=== PATIENT | female | born 1945 | race Caucasian/White ===

== ENCOUNTER → 2021-10-29 16:28 | Outpatient (BNVA) | payer OTHER, SELFPAY | PROVIDERS: Visit Provider Psychiatry & Neurology Neurology | DX: F03.90 Unspecified dementia, unspecified severity, without behavioral disturbance, psychotic disturbance, mood disturbance, and anxiety (principal); R26.89 Other abnormalities of gait and mobility; Z79.899 Other long term (current) drug therapy; Z91.81 History of falling | CPT/HCPCS: 99212 ==

== ENCOUNTER → 2022-09-17 15:37 | Outpatient (BNVA) | payer OTHER, SELFPAY | PROVIDERS: PCP Internal Medicine; Visit Provider Psychiatry & Neurology Neurology | DX: Z13.89 Encounter for screening for other disorder (principal) ==

== ENCOUNTER 2023-03-17 15:36 | Outpatient (AMB) | payer OTHER, SELFPAY ==
[2023-03-17 15:37] VITALS: BP 104/62; PULSE 82
--- NOTE | 2023-03-17 15:37 | A.OFFVIS_ITS ---
Intake Vital Signs 03/17/23 15:37 Height 5 ft BP 104/62 Blood Pressure Location Rt brachial Position Sitting Pulse 82 Pulse Source Pulse Oximeter Intake Visit Reasons: 6mnts f/u appt-lvm Intake Note: Patient presents for 6 month follow up. Allergies Penicillins Adverse Reaction (Mild, Verified 03/17/23 15:39) Unknown HPI HPI Comments History of Present Illness Details 77-year-old female comes for follow-up of her dementia and multifactorial gait disorder.she had a fall and had a right hip fracture about 4 mths ago . she had surgery and was in rehab and is doing better now. Cognitively she has been stable . No behavior issues.No falls since then she walks with walker .she lives with her and her daughter helps out. She stays in bed most of the time she reports she has generalized pain related to her arthritis and she feels tired. Her appetite is better She denies any hallucinations. She is sleeping ok. [facility] Medical History Arthritis Delirium Depression GERD (gastroesophageal reflux disease) HTN (hypertension) Hyperlipidemia Hypothyroidism Surgical History History of hip surgery Family History Mother Diabetes Father Aneurysm Social History Alcohol intake: never Patient Tobacco Use Status: Never used Tobacco Physical Exam Vital Signs: Last Vital Signs Pulse 82 03/17/23 15:37 BP 104/62 03/17/23 15:37 Const General: cooperative and awake Nutritional Appearance: underweight Orientation/consciousness: oriented to person, oriented to place and oriented to time Neuro Other: gait- scoliosis, unstable, needed assistance General: oriented to person, oriented to place, oriented to time, tone normal, moves all extremities and no focal motor deficits Assessment & Plan Assessment & Plan (1) Dementia: Code(s): F03.90 - Unspecified dementia, unspecified severity, without behavioral disturbance, psychotic disturbance, mood disturbance, and anxiety (2) Gait disorder: Code(s): R26.9 - Unspecified abnormalities of gait and mobility (3) Falls: Code(s): W19.XXXA - Unspecified fall, initial encounter Plan continue Namenda 10 mg b.i.d. Hold clonazepam 0.5 mg 1/2 tab qhs I also suggested to try Tylenol p.m. to help with generalized pain and sleep. Coding Level of Care Code Est Pt Level 4 (48110) Diagnoses Dementia F03.90 Gait disorder R26.9 Falls W19.XXXA
== END 2023-03-17 15:56 | disposition home or self-care (01) ==
PROVIDERS: Visit Provider Psychiatry & Neurology Neurology
DX: F03.90 Unspecified dementia, unspecified severity, without behavioral disturbance, psychotic disturbance, mood disturbance, and anxiety (principal); R26.9 Unspecified abnormalities of gait and mobility; R29.6 Repeated falls
CPT/HCPCS: 99214

== ENCOUNTER → 2023-03-17 15:36 | Outpatient (BNVA) | payer OTHER, SELFPAY | PROVIDERS: Visit Provider Psychiatry & Neurology Neurology | DX: F03.90 Unspecified dementia, unspecified severity, without behavioral disturbance, psychotic disturbance, mood disturbance, and anxiety (principal); R26.9 Unspecified abnormalities of gait and mobility; W19.XXXA Unspecified fall, initial encounter ==

== ENCOUNTER 2024-10-04 15:31 | Outpatient (AMB) | payer OTHER, SELFPAY ==
--- NOTE | 2024-10-04 15:33 | MHC.OFFVIS ---
Vital Signs 10/04/24 15:42 Height 5 ft Weight 85 lb BMI 16.6 BP 112/78 Blood Pressure Location Rt brachial Position Sitting Pulse 92 Pulse Source Pulse Oximeter Pulse Oximetry (%) 97 Oxygen Delivery Method Room Air Intake Visit Reasons: 1yr f/u appt Intake Note: Patient following up for dementia Allergies Penicillins Adverse Reaction (Mild, Verified 10/04/24 15:35) Unknown HPI Comments Details: 79-year-old female comes for follow-up of her dementia and multifactorial gait disorder after 18 months. she is on supplemental oxygen for pulmonary fibrosis and has been doing well. Her cognition is better. she lives with her and her children - do 20 hrs of home care per day.she ambulates at home with a walker . No recent falls she sleeps most nights . she also takes daytime naps. .History from last visit-she had a fall and had a right hip fracture November 2022 . she had surgery and was in rehab and is doing better now. Cognitively she has been stable . No behavior issues.No falls since then she walks with walker .she lives with her and her daughter helps out. She stays in bed most of the time she reports she has generalized pain related to her arthritis and she feels tired. Her appetite is better She denies any hallucinations. She is sleeping ok. COUNT INCLUDES THE [facility] Medical History (Updated 10/04/24 @ 16:04 by Alisson Gordon MD) Cognitive disorder Forearm fracture Delirium Hypothyroidism GERD (gastroesophageal reflux disease) Depression Hyperlipidemia HTN (hypertension) Arthritis Surgical History History of hip surgery Family History Mother Diabetes Father Aneurysm Social History Alcohol intake: never Patient Tobacco Use Status: Never used Tobacco Physical Exam Const General: cooperative and awake Nutritional Appearance: underweight Orientation/consciousness: oriented to person, oriented to place and oriented to time Neuro Other: In wheel chair . General: oriented to person, oriented to place, oriented to time, tone normal, moves all extremities and no focal motor deficits Orientation What is the (year) (season) (date) (day) (month)?: year, season, date, day and month Where are we (state) (county) (town or city) (hospital) (floor)?: state, town or city, hospital/clinic and floor Registration Name of 3 unrelated objects clearly and slowly, then ask patient to repeat all 3 of them. (1st repeat determines score. Make sure they can repeat all three): object 1, object 2 and object 3 Attention & Calculation (CHOOSE ONE) Spell WORLD backwards (DLROW): 5 letters Recall Ask patient to repeat the 3 items from question #3.: object 1 and object 2 Language Show patient a wristwatch & ask what it is. Repeat for pencil.: watch and pencil Ask the patient to repeat the phrase 'No ifs, ands, or buts' after you.: correct Ask the patient to 'take a piece of paper with their right hand' 'fold paper in half' 'place paper on floor': take paper in right hand, fold paper in half and place paper on floor Print the sentence 'CLOSE YOUR EYES' on a piece. If patient actually closes eyes then score.: followed written direction Ask patient to copy figure of intersecting pentagons exactly. Score if all 10 angles & 2 intersects are included.: all 10 angles present & 2 are intersected Score Score: 27 Assessment & Plan Assessment & Plan (1) Gait disorder: Code(s): R26.9 - Unspecified abnormalities of gait and mobility Category: Medical (2) Cognitive disorder: Comment: MMSE Code(s): F09 - Unspecified mental disorder due to known physiological condition Category: Medical Plan continue Namenda 10 mg b.i.d. F/u as needed Coding Level of Care Code Est Pt Level 4 (66468) Diagnoses Gait disorder R26.9 Cognitive disorder F09
[2024-10-04 15:42] VITALS: BP 112/78; PULSE 92; O2SAT 97; BMI 16.6
--- OUTSIDE RECORDS SUMMARY | 2024-10-04 17:48 | XMS_ITS | Continuity of Care Document ---
Author Organization [facility] Adult Address [address] [place] [address]- Support Name Relationship Address Phone PRUDENCE LIZETH Personal Relationship Unknown Unava ilable PRUDENCE, LIZETH Personal Relationship Unknown Unava ilable PRUDENCE, LIZETH Personal Relationship Unknown Unava ilable PRUDENCE, LIZETH spouse Unknown Unavailable PRUDENCE, LIZETH Personal Relationship Unknown Unava ilable PRUDENCE, LIZETH Personal Relationship Unknown Unava ilable PRUDENCE, LIZETH Personal Relationship Unknown Unava ilable PRUDENCE, LIZETH Personal Relationship Unknown Unava ilable PRUDENCE, LEONARDA Personal Relationship Unknown Unav ailable PRUDENCE, LEONARDA Personal Relationship Unknown Unav ailable PRUDENCE, LIZETH Personal Relationship Unknown Unava ilable PRUDENCE, LIZETH Personal Relationship Unknown Unava ilable PRUDENCE, LIZETH Personal Relationship Unknown Unava ilable PRUDENCE, LIZETH Personal Relationship Unknown Unava ilable PRUDENCE, LIZETH Personal Relationship Unknown Unava ilable PRUDENCE, LIZETH Personal Relationship Unknown Unava ilable MICHALEK, KALYANI child Unknown Unavailabl e PRUDENCE, LIZETH Personal Relationship Unknown Unava ilable PRUDENCE, LIZETH Personal Relationship Unknown Unava ilable PRUDENCE, LIZETH Personal Relationship Unknown Unava ilable PRUDENCE, LIZETH Personal Relationship Unknown Unava ilable MICHALEK, CYNDY child Unknown Unavailab le Care Team Providers Care Sales Representative [employer] Name Role Phone Ellen ROBINS, [facility] Primary Care Physician ( [phone] Encounter [facility] Date(s): 09/03/24 - 10/03/[address] [id number] Encounter Type: Triage Allergies, Adverse Reactions, Alerts Substance Criticality Severity Reaction Reaction Severity Status erythromycin [D]Nausea and vomiting Active penicillin headache, cannot walk Active hydrochlorothiazide Leg cramps Active oxybutynin Dryness untolerable Active pravastatin Myalgia Active amlodipine Constipation Active simvastatin Myalgia Active tetanus toxoid Itchy skin eruption Active ergocalciferol GI upset Activ e Advil rash Active Aricept nausea Active Imodium A-D Swelling of throat Active Namenda constipation Active Immunizations Given and Recorded Vaccine Date Status Refusal Reason SARS-CoV-2(COVID-19)mRNA-LNP vac([id number]) 06/17/23 Recorded influenza virus vaccine, inactivated 06/03/23 Manjinder rded influenza virus vaccine, inactivated 07/23/21 Manjinder rded influenza virus vaccine, inactivated 1 06/08/18 Gi deric influenza virus vaccine, inactivated 06/25/17 Manjinder rded influenza virus vaccine, inactivated 07/09/16 Give n influenza virus vaccine, inactivated 2 07/09/16 Gi deric influenza virus vaccine, inactivated 04/29/14 Give n influenza virus vaccine, inactivated 06/08/13 Give n influenza virus vaccine, inactivated 07/14/12 Give n influenza virus vaccine, inactivated 05/08/11 Give n influenza virus vaccine, inactivated 06/15/10 Give n influenza virus vaccine, inactivated 06/07/08 Give n influenza virus vaccine, inactivated 05/22/07 Give n RSV vaccine, preF A-preF B, recombinant 05/28/23 R ecorded SARS-CoV-2 (COVID-19) mRNA-1273 vaccine 07/23/21 R ecorded SARS-CoV-2 (COVID-19) mRNA-1273 vaccine 3 10/16/20 Recorded SARS-CoV-2 (COVID-19) mRNA-1273 vaccine 4 09/18/20 Recorded zoster vaccine, inactivated 04/11/21 Recorded zoster vaccine, inactivated 11/20/20 Recorded Influenza Virus Vaccine (oldterm) 5 03/29/20 Recor ded Influenza Inactive (IM) (oldterm) 6 07/10/15 Recor ded Zostavax (oldterm) 7 04/25/15 Given Zostavax (oldterm) 8 07/27/14 Given pneumococcal 13-valent vaccine 01/25/15 Given tetanus/diphtheria/pertussis, acel(Tdap) 9 07/27/14 Given pneumococcal 23-valent vaccine 05/08/11 Given Influenza Vaccine (oldterm) 05/08/09 Given 1Admin Note: [facility] 2Admin Note: Declined 3[facility] 6[facility] Comment[facility] 8Admin Note: Will get vaccine 2014 ( presently in [facility] ) 9Admin Note: Allergic Medications Asmanex HFA 100 mcg/inh inhalation aerosol 2 puffs, Inhalation, 2 times a day, AND THROAT AFTER EACH USE., # 13 Gm, 5 Refills, Maintenance, 07/13/24 12:57:00 PM EST, [facility], 155, cm, 06/08/24 11:16:00 EDT, Height, 42, kg,12/17/23 0:21:00 EDT, Dry Weight Start Date: 07/13/24 Stop Date: 08/12/24 Status: Ordered Quantity: 13.0 Unit: g Repeat number: 1 clonazePAM 0.5 mg oral tablet 0.5 tablet = 0.25 mg, By Mouth, Daily, # 45 tablet, 3 Refills, Maintenance, 04/01/24 11:32:00 AM EDT, Tablet, [facility], Partial fill upon patient request if the prescription is fora schedule II opioid drug., 155, cm, 03/25/24 11:34:00 EDT, Height, 42, kg, 12/17/23 0:21:00 EDT, Dry Weight Start Date: 04/01/24 Stop Date: 03/27/25 Status: Ordered Quantity: 45.0 Unit: tablet Repeat number: 4 cloNIDine 0.1 mg oral tablet 0.5, tablet, By Mouth, Daily at bedtime, # 45 tablet, Refills 3, Maintenance, 01/01/24 12:49:00 PM EDT, Route to Pharmacy Electronically, [facility], 155, cm, 12/17/23 14:10:00 EDT, Height, 42, kg, 12/17/23 0:21:00 EDT, Dry Weight Start Date: 01/01/24 Status: Ordered Quantity: 45.0 Unit: tablet Repeat number: 1 Docusate/Senna Tablet 1 tablet, By Mouth, 2 times a day, 0 Refills, Maintenance, 11/21/22 1:58:00 PM EDT, Tablet, Partial fill upon patient request if the prescription is for a schedule II opioid drug. Start Date: 11/21/22 Status: Ordered Repeat number: 1 Dry Eye Relief Eyes, Both, 4 times a day, PRN as needed for dry eyes, 0 Refills, Maintenance, 11/16/22 4:48:00 PM EDT, Partial fill upon patient request if the prescription is for a schedule II opioid drug. Start Date: 11/16/22 Status: Ordered Repeat number: 1 levothyroxine 0.05 mg oral tablet 1 tablet, By Mouth, Daily, # 90 tablet, 1 Refills, Maintenance, 08/10/24 8:54:00 AM EST, [facility], 155, cm, 06/08/24 11:16:00 EDT, Height, 42, kg, 12/17/23 0:21:00 EDT, Dry Weight Start Date: 08/10/24 Status: Ordered Quantity: 90.0 Unit: tablet Repeat number: 1 lisinopril 10 mg oral tablet 1, tablet, By Mouth, Daily, # 90 tablet, Refills 1, Maintenance, 09/08/24 6:02:00 PM EST, Route to Pharmacy Electronically, [facility], 153, cm, 09/08/24 14:13:00 EST, Height, 39, kg, 09/01/24 16:29:00 EST, Dry Weight Start Date: 09/08/24 Status: Ordered Quantity: 90.0 Unit: tablet Repeat number: 1 memantine 10 mg oral tablet 1 tablet = 10 mg, By Mouth, 2 times a day, # 60 tablet, 5 Refills, Maintenance, 06/21/21 11:31:00 AM EST, Tablet, Partial fill upon patient request if the prescription is for a schedule II opioid drug. Start Date: 06/21/21 Status: Ordered Quantity: 60.0 Unit: tablet Repeat number: 1 omeprazole 40 mg oral enteric coated capsule See Instructions, TAKE ONE CAPSULE BY MOUTH ONCE DAILY 30 MINUTES BEFORE A MEAL, # 30 capsule, 3 Refills, Maintenance, 09/29/24 9:42:00 AM EST, [facility], 153, cm, 09/08/24 14:13:00EST, Height, 39, kg, 09/01/24 16:29:00 EST, Dry Weight Start Date: 09/29/24 Status: Ordered Quantity: 30.0 Unit: capsule Repeat number: 1 PARoxetine 20 mg oral tablet 1, tablet, By Mouth, Daily, # 90 tablet, Refills 1, Maintenance, 05/02/24 8:35:00 AM EDT, Route to Pharmacy Electronically, [facility], 155, cm, 03/25/24 11:34:00 EDT, Height, 42, kg, 12/17/23 0:21:00 EDT, Dry Weight Start Date: 05/02/24 Status: Ordered Quantity: 90.0 Unit: tablet Repeat number: 1 tamsulosin 0.4 mg oral capsule 1, capsule, By Mouth, Daily at bedtime, # 90 capsule, Refills 1, Maintenance, 07/09/24 2:52:00 PM EST, Route to Pharmacy Electronically, [facility], 155, cm, 06/08/24 11:16:00 EDT, Height, 42, kg, 12/17/23 0:21:00 EDT, Dry Weight Start Date: 07/09/24 Status: Ordered Quantity: 90.0 Unit: capsule Repeat number: 1 tolterodine 4 mg oral capsule, extended release 1 capsule, By Mouth, Daily, # 30 capsule, 11 Refills, Maintenance, 11/10/23 8:14:00 AM EDT, [facility], 148, cm, 07/14/23 13:53:00 EST, Height, 39, kg, 11/17/22 8:10:00 EDT, Dry Weight Start Date: 11/10/23 Status: Ordered Quantity: 30.0 Unit: capsule Repeat number: 1 tolterodine 4 mg oral capsule, extended release 0 Refills, Maintenance, 05/03/24 1:25:00 PM EDT, Partial fill upon patient request if the prescription is for a schedule II opioid drug. Start Date: 05/03/24 Status: Ordered Repeat number: 1 Tylenol 325 mg oral tablet 650 mg, 2, tablet, By Mouth, 4 times a day, PRN, Refills 0, Maintenance, Pain , Moderate, 11/21/22 1:57:00 PM EDT, Partial fill upon patient request if the prescription is for a schedule II opioid drug. Start Date: 11/21/22 Status: Ordered Repeat number: 1 Ventolin HFA 108 mcg/inh inhalation aerosol with adapter 2 puffs, Inhalation, Every 6 hours, PRN for wheezing, # 18 Gm, 5 Refills, Maintenance, 12/08/23 4:18:00 PM EDT, Aerosol, [facility], Partial fill upon patient request if the prescription is for a schedule II opioid drug., 148, cm, 11/18/23 10:32:00 EDT, Height, 39, kg, 11/17/22 8:10:00 EDT, Dry Weight Start Date: 12/08/23 Status: Ordered Quantity: 18.0 Unit: g Repeat number: 6 Vitamin D3 oral tablet 1 tablet = 10 mcg, By Mouth, Daily, 0 Refills, Maintenance, 11/16/22 4:47:00 PM EDT, Partial fill upon patient request if the prescription is for a schedule II opioid drug. Start Date: 11/16/22 Status: Ordered Repeat number: 1 Problem List Condition Confirmation Course Effective Dates Status Health Status Informant Asthma, mild persistant Confirmed Active OA (osteoarthritis of spine) Confirmed Active Gallstone Confirmed 08/02/11 Active GERD (gastroesophageal reflux disease) Confirmed Active Hypercholesterolemia Confirmed Active Hypertension Confirmed Active Hypothyroidism Confirmed Active MCI (mild cognitive impairment) Confirmed Active Depression with anxiety Confirmed Active Lung nodule Confirmed Active Osteoarthritis of knee Confirmed Active Osteopenia Confirmed Active MDD (major depressive disorder), recurrent episode, mild 1 Confirmed Active Underweight Confirmed Active Urge urinary incontinence Confirmed Active 1Updated Dx per chart review. Last PHQ-9= 13 (done 06/21/21) Social History Social History Type Response Smoking Status Never smoker entered on: 07/10/17 Sex Sex Representation Female (finding) Patient Care team information Care Team Personnel Name: Donna Alonso RN Position: [facility] RN Member Role: Primary Care Nurse Name: Louie Hughes MD Position: [facility] Physician - Primary Care Member Role: PCP Address: [address] [place] [id number] Telecom: Name: David Lange RN Position: S RN Member Role: Primary Care Nurse Name: Yareli Peter RN Position: [facility] RN Member Role: Primary Care Nurse Care Team Related Persons Name: LIZETH FOSS Name: KALYANI CHEN Name: CYNDY CHEN Insurance Providers Guarantor name: LEONARDA FOSS Health Plan Information #: 1 Payer: [employer] HMO Member Number: NA Policy Number: NA Group Number: NA
--- OUTSIDE RECORDS SUMMARY | 2024-10-04 17:48 | XMS_ITS | Continuity of Care Document ---
Author Organization [facility] edicine Address [address] [address]- Support Name Relationship Address Phone PRUDENCE LIZETH [...] Unknown Unavailab le Care Team Providers Care Ore Tester Name Role Phone [facility] Physician Encounter [facility] Date(s): 08/23/24 - 09/22/24 [facility] Pulmonary Medicine [address] [id number] Encounter Type: Triage Allergies, Adverse Reactions, Alerts Substance Criticality Severity Reaction Reaction Severity Status erythromycin [D]Nausea and vomiting Active penicillin headache, cannot walk Active Advil rash Active Namenda constipation Active hydrochlorothiazide Leg cramps Active oxybutynin Dryness untolerable Active pravastatin Myalgia Active ergocalciferol GI upset Activ e amlodipine Constipation Active simvastatin Myalgia Active tetanus toxoid Itchy skin eruption Active Aricept nausea Active Imodium A-D Swelling of throat Active Immunizations Given and Recorded Vaccine Date Status Refusal Reason SARS-CoV-2(COVID-19)mRNA-LNP vac([id number]) 06/17/23 Recorded influenza virus vaccine, inactivated 06/03/23 [...] Will get vaccine 2014 ( presently in [facility] ) 9Admin Note: Allergic Medications Asmanex HFA [...] 1 Refills, Maintenance, 08/10/24 8:54:00 AM EST, [facility], 155, cm, 06/08/24 11:16:00 EDT, Height, 42, kg, 12/17/23 0:21:00 EDT, Dry Weight Start Date: 08/10/24 Status: Ordered Quantity: 90.0 Unit: tablet Repeat number: 1 lisinopril 10 mg oral tablet 1, tablet, By Mouth, Daily, # 90 tablet, Refills 1, Maintenance, 09/08/24 6:02:00 PM EST, Route to Pharmacy Electronically, [facility], 153, cm, 09/08/24 14:13:00 EST, [...] omeprazole 40 mg oral enteric coated capsule 1 capsule = 40 mg, By Mouth, Daily, 30 min before a meal, # 30 capsule, 3 Refills, Maintenance, 06/08/24 1:42:00 PM EDT, [facility], Partial fill upon patient request if the prescription is for a schedule II opioid drug., 155, cm, 06/08/24 11:16:00 EDT, Height, 42, kg, 12/17/23 0:21:00 EDT, Dry Weight Start Date: 06/08/24 Status: Ordered Quantity: 30.0 Unit: capsule Repeat number: 4 PARoxetine 20 mg oral tablet 1, tablet, By Mouth, Daily, # 90 tablet, Refills 1, Maintenance, 05/02/24 8:35:00 AM EDT, Route to Pharmacy Electronically, [facility], 155, cm, 03/25/24 11:34:00 EDT, Height, 42, kg, 12/17/23 0:21:00 EDT, Dry Weight Start Date: 05/02/24 Status: Ordered Quantity: 90.0 Unit: tablet Repeat number: 1 tamsulosin 0.4 mg oral capsule 1, capsule, By Mouth, Daily at bedtime, # 90 capsule, Refills 1, Maintenance, 07/09/24 2:52:00 PM EST, Route to Pharmacy Electronically, [facility], 155, cm, 06/08/24 11:16:00 EDT, Height, 42, kg, 12/17/23 0:21:00 EDT, Dry Weight Start Date: 07/09/24 Status: Ordered Quantity: 90.0 Unit: capsule Repeat number: 1 tolterodine 4 mg oral capsule, extended release 1 capsule, By Mouth, Daily, # 30 capsule, 11 Refills, Maintenance, 11/10/23 8:14:00 AM EDT, [facility], 148, cm, 07/14/23 13:53:00 EST, [...] Team Personnel Name: Donna Alonso RN Position: [facility] RN Member Role: Primary Care Nurse Name: Louie Hughes MD Position: [facility] Physician - Primary Care Member Role: PCP Address: [address] [place] [address]- Telecom: Name: David Lange RN Position: S RN Member Role: Primary Care Nurse Name: Yareli Peter RN Position: [facility] RN Member Role: Primary Care Nurse Care Team Related Persons Name: LIZETH FOSS Name: KALYANI CHEN Name: CYNDY CHEN Insurance Providers Guarantor name: LEONARDA FOSS Health Plan Information #: 1 Payer: [employer] H[employer] Member Number: NA Policy Number: NA Group Number: NA
--- OUTSIDE RECORDS SUMMARY | 2024-10-04 17:48 | XMS_ITS | Continuity of Care Document ---
Author Organization [facility] Address [address] [place] [id number]- Support Name Relationship Address Phone LIZETH FOSS Personal Relationship Unknown Unava ilable PRUDENCE, LIZETH [...] Unknown Unavailab le Care Team Providers Care Corpsman Name Role Phone Ellen ROBINS, [facility] Primary Care Physician [place] [facility] [place]24 [facility] [address] [place] [id number] Attending Physician: Boy Galdamez Admitting Physician: Boy Galdamez Referring Physician: Boy Galdamez Encounter Type: Triage Allergies, Adverse Reactions, Alerts Substance Criticality Severity Reaction Reaction Severity Status erythromycin [D]Nausea and vomiting Active Namenda constipation Active penicillin headache, cannot walk Active hydrochlorothiazide Leg cramps Active oxybutynin Dryness untolerable Active pravastatin Myalgia Active ergocalciferol GI upset Activ e amlodipine Constipation Active simvastatin Myalgia Active tetanus toxoid Itchy skin eruption Active Advil rash Active Aricept nausea Active Imodium A-D Swelling of throat Active Immunizations Given and Recorded Vaccine Date Status Refusal Reason SARS-CoV-2(COVID-19)mRNA-LNP vac([id number]) 06/17/23 Recorded influenza virus vaccine, inactivated 06/03/23 [...] 2014 ( presently in [facility] ) 9Admin Note: Allergic Medications Asmanex [...] Refills, Maintenance, 08/10/24 8:54:00 AM EST, [facility], 155, cm, 06/08/24 11:16:00 EDT, Height, 42, kg, 12/17/23 0:21:00 EDT, Dry Weight Start Date: 08/10/24 Status: Ordered Quantity: 90.0 Unit: tablet Repeat number: 1 lisinopril 10 mg oral tablet 1, tablet, By Mouth, Daily, # 90 tablet, Refills 1, Maintenance, 09/08/24 6:02:00 PM EST, Route to Pharmacy Electronically, [facility], 153, cm, 09/08/24 14:13:00 EST, [...] Maintenance, 06/08/24 1:42:00 PM EDT, [facility], Partial fill upon patient request [...] 8:35:00 AM EDT, Route to Pharmacy Electronically, [facility], 155, cm, 03/25/24 11:34:00 EDT, Height, 42, kg, 12/17/23 0:21:00 EDT, Dry Weight Start Date: 05/02/24 Status: Ordered Quantity: 90.0 Unit: tablet Repeat number: 1 tamsulosin 0.4 mg oral capsule 1, capsule, By Mouth, Daily at bedtime, # 90 capsule, Refills 1, Maintenance, 07/09/24 2:52:00 PM EST, Route to Pharmacy Electronically, [facility], 155, cm, 06/08/24 11:16:00 EDT, Height, 42, kg, 12/17/23 0:21:00 EDT, Dry Weight Start Date: 07/09/24 Status: Ordered Quantity: 90.0 Unit: capsule Repeat number: 1 tolterodine 4 mg oral capsule, extended release 1 capsule, By Mouth, Daily, # 30 capsule, 11 Refills, Maintenance, 11/10/23 8:14:00 AM EDT, [facility], 148, cm, 07/14/23 13:53:00 EST, [...] Team Personnel Name: Donna Alonso RN Position: [facility] SN RN Member Role: Primary Care Nurse Name: Louie Hughes MD Position: [facility] Physician - Primary Care Member Role: PCP Address: [address] [place] [address] [address] [place] [address]- Telecom: Name: David Lange RN Position: S RN Member Role: Primary Care Nurse Name: Yareli Peter RN Position: S RN Member Role: Primary Care Nurse Care Team Related Persons Name: LIZETH FOSS Name: KALYANI CHEN Name: CYNDY CHEN Insurance Providers Guarantor name: LEONARDAJHONY FOSS [facility] Plan Information #: 1 Payer: [employer] H[employer] Member Number: NA Policy Number: NA Group Number: NA
--- OUTSIDE RECORDS SUMMARY | 2024-10-04 17:48 | XMS_ITS | Continuity of Care Document ---
Author Organization [facility] Adult Address [address] [place] [address]- Support Name Relationship Address Phone PRUDENCE LIZETH [...] Unknown Unavailab le Care Team Providers Care Garde Manger Name Role Phone Ellen ROBINS, [facility] Primary Care Physician ( [phone] Encounter [facility] [place] Date(s): 09/02/24 - 10/02/[address] [address] Encounter Type: Triage Allergies, Adverse [...] Recorded Vaccine Date Status Refusal Reason SARS-CoV-2(COVID-19)mRNA-LNP vac([id number]) 06/17/23 Recorded influenza virus vaccine, inactivated 06/03/23 [...] Will get vaccine 2014 ( presently [facility] ) 9Admin Note: Allergic Medications Asmanex HFA [...] 1 Refills, Maintenance, 08/10/24 8:54:00 AM EST, [facility], 155, cm, 06/08/24 11:16:00 EDT, Height, 42, kg, 12/17/23 0:21:00 EDT, Dry Weight Start Date: 08/10/24 Status: Ordered Quantity: 90.0 Unit: tablet Repeat number: 1 lisinopril 10 mg oral tablet 1, tablet, By Mouth, Daily, # 90 tablet, Refills 1, Maintenance, 09/08/24 6:02:00 PM EST, Route to Pharmacy Electronically, [facility], 153, cm, 09/08/24 14:13:00 EST, [...] 3 Refills, Maintenance, 09/29/24 9:42:00 AM EST, [facility], 153, cm, 09/08/24 14:13:00EST, Height, 39, kg, 09/01/24 16:29:00 EST, Dry Weight Start Date: 09/29/24 Status: Ordered Quantity: 30.0 Unit: capsule Repeat number: 1 PARoxetine 20 mg oral tablet 1, tablet, By Mouth, Daily, # 90 tablet, Refills 1, Maintenance, 05/02/24 8:35:00 AM EDT, Route to Pharmacy Electronically, [facility], 155, cm, 03/25/24 11:34:00 EDT, Height, 42, kg, 12/17/23 0:21:00 EDT, Dry Weight Start Date: 05/02/24 Status: Ordered Quantity: 90.0 Unit: tablet Repeat number: 1 tamsulosin 0.4 mg oral capsule 1, capsule, By Mouth, Daily at bedtime, # 90 capsule, Refills 1, Maintenance, 07/09/24 2:52:00 PM EST, Route to Pharmacy Electronically, [facility], 155, cm, 06/08/24 11:16:00 EDT, Height, 42, kg, 12/17/23 0:21:00 EDT, Dry Weight Start Date: 07/09/24 Status: Ordered Quantity: 90.0 Unit: capsule Repeat number: 1 tolterodine 4 mg oral capsule, extended release 1 capsule, By Mouth, Daily, # 30 capsule, 11 Refills, Maintenance, 11/10/23 8:14:00 AM EDT, [facility], 148, cm, 07/14/23 13:53:00 EST, [...] Team Personnel Name: Donna Alonso RN Position: [facility] RN Member Role: Primary Care Nurse Name: Louie Hughes MD Position: [facility] Physician - Primary Care Member Role: PCP Address: [address] [place] [address] Telecom: Name: David Lange RN Position: S RN Member Role: Primary Care Nurse Name: Yareli Peter RN Position: [facility] RN Member Role: Primary Care Nurse Care Team Related Persons Name: LIZETH FOSS Name: KALYANI CHEN Name: CYNDY CHEN Insurance Providers Guarantor name: LEONARDA FOSS Health Plan Information #: 1 Payer: [employer] H[employer] Member Number: NA Policy Number: NA Group Number: NA
--- OUTSIDE RECORDS SUMMARY | 2024-10-04 17:48 | XMS_ITS | Continuity of Care Document ---
Author Organization [facility] Adult Address [address] [place] [address]- Support Name Relationship Address Phone PRUDENCE LIZETH [...] Unknown Unavailab le Care Team Providers Care Blowing Weasand Name Role Phone Ellen ROBINS, [facility] Primary Care Physician [place] [facility] [place] 09/09/[address] [address] Encounter Type: Triage Allergies, Adverse [...] Recorded Vaccine Date Status Refusal Reason SARS-CoV-2(COVID-19)mRNA-LNP vac([id number]) 06/17/23 Recorded influenza virus vaccine, inactivated 06/03/23 [...] Will get vaccine 2014 ( presently in [facility] ) 9Admin Note: Allergic Medications Asmanex HFA [...] Refills, Maintenance, 08/10/24 8:54:00 AM EST, [facility], 155, cm, 06/08/24 11:16:00 EDT, Height, 42, kg, 12/17/23 0:21:00 EDT, Dry Weight Start Date: 08/10/24 Status: Ordered Quantity: 90.0 Unit: tablet Repeat number: 1 lisinopril 10 mg oral tablet 1, tablet, By Mouth, Daily, # 90 tablet, Refills 1, Maintenance, 09/08/24 6:02:00 PM EST, Route to Pharmacy Electronically, [facility], 153, cm, 09/08/24 14:13:00 EST, [...] Maintenance, 06/08/24 1:42:00 PM EDT, [facility], Partial fill upon patient request [...] 8:35:00 AM EDT, Route to Pharmacy Electronically, [facility], 155, cm, 03/25/24 11:34:00 EDT, Height, 42, kg, 12/17/23 0:21:00 EDT, Dry Weight Start Date: 05/02/24 Status: Ordered Quantity: 90.0 Unit: tablet Repeat number: 1 tamsulosin 0.4 mg oral capsule 1, capsule, By Mouth, Daily at bedtime, # 90 capsule, Refills 1, Maintenance, 07/09/24 2:52:00 PM EST, Route to Pharmacy Electronically, [facility], 155, cm, 06/08/24 11:16:00 EDT, Height, 42, kg, 12/17/23 0:21:00 EDT, Dry Weight Start Date: 07/09/24 Status: Ordered Quantity: 90.0 Unit: capsule Repeat number: 1 tolterodine 4 mg oral capsule, extended release 1 capsule, By Mouth, Daily, # 30 capsule, 11 Refills, Maintenance, 11/10/23 8:14:00 AM EDT, [facility], 148, cm, 07/14/23 13:53:00 EST, [...] Team Personnel Name: Donna Alonso RN Position: [facility] RN Member Role: Primary Care Nurse Name: Louie Hughes MD Position: [facility] Physician - Primary Care Member Role: PCP Address: [address] [place] [address]- Telecom: Name: David Lange RN Position: S RN Member Role: Primary Care Nurse Name: Yaerli Peter RN Position: S RN Member Role: Primary Care Nurse Care Team Related Persons Name: LIZETH FOSS Name: KALYANI CHEN Name: CYNDY CHEN Insurance Providers Guarantor name: LEONARDA FOSS Health Plan Information #: 1 Payer: [facility] [employer] Member Number: NA Policy Number: NA Group Number: NA
== END 2024-10-04 16:03 | disposition home or self-care (01) ==
PROVIDERS: PCP Internal Medicine; Visit Provider Psychiatry & Neurology Neurology
DX: R26.9 Unspecified abnormalities of gait and mobility (principal); R41.89 Other symptoms and signs involving cognitive functions and awareness
CPT/HCPCS: 99214

== ENCOUNTER → 2024-10-04 15:31 | Outpatient (BNVA) | payer OTHER, SELFPAY | PROVIDERS: PCP Internal Medicine; Visit Provider Psychiatry & Neurology Neurology | DX: F03.90 Unspecified dementia, unspecified severity, without behavioral disturbance, psychotic disturbance, mood disturbance, and anxiety (principal); R26.9 Unspecified abnormalities of gait and mobility; W19.XXXA Unspecified fall, initial encounter ==